=== PATIENT | female | born 1950 | race Two or more races ===

== ENCOUNTER 2018-08-21 10:31 | Outpatient (CLI) | payer OTHER | END 2018-08-21 10:35 | disposition home or self-care (01) | LOC: SONOGRAMA 10:31 | DX: D44.0 Neoplasm of uncertain behavior of thyroid gland (principal) ==

== ENCOUNTER → 2020-04-03 | Outpatient (CLI) | payer OTHER | END | disposition home or self-care (01) | LOC: SONOGRAMA 11:47 | DX: D44.0 Neoplasm of uncertain behavior of thyroid gland (principal) ==

== ENCOUNTER 2024-11-19 15:24 | Outpatient (CLI) | payer OTHER | END 2024-11-19 15:25 | disposition home or self-care (01) | LOC: SONOGRAMA 15:24 | PROVIDERS: ATTEND Pathology Anatomic Pathology & Clinical Pathology | DX: E04.2 Nontoxic multinodular goiter (principal); D34 Benign neoplasm of thyroid gland ==